=== PATIENT | female | born 1980 | race Two or more races ===

== ENCOUNTER 2018-12-21 23:45 | Emergency (ER) | payer BC ==
[~2018-12-21] VITALS: Ht 165.1 cm; Wt 74.2 kg
[~2018-12-21 23:45] MED LIST: CEPH-443 PO; IBUP800T48 PO
[2018-12-21 23:53] VITALS: Ht 165.1 cm; Wt 74.2 kg
[2018-12-22] MEDS ORDERED: LORAZEPAM 2 MG INJ IV ONE (01:00)
[2018-12-22] MEDS ORDERED: LORA-441 PO (01:35)
[2018-12-22 01:59] VITALS: BP 125/80; PULSE 99; RESP 18
--- NOTE | 2019-01-08 17:59 | ERD ---
ER Documentation Chief Complaint Chief Complaint pt reports she is having stress at work and all of a sudden hyperventilatio HPI Is a very pleasant 38 female complains of panic attack. She has been under a lot of stress at work lately. Denies any fevers chills nausea vomiting. Denies any other current complaints. ROS All systems reviewed and are negative except as per history of present illness. Medications Home Meds Active Scripts Lorazepam* (Ativan*) 0.5 Mg Tablet, 0.5 MG PO Q8H PRN for ANXIETY, #14 TAB Prov:MOLLY URBAN 12/22/18 Allergies Allergies: Coded Allergies: No Known Allergy (Unverified , 12/22/18) PMhx/Soc Medical and Surgical Hx: pt denies Medical Hx, pt denies Surgical Hx History of Surgery: No Anesthesia Reaction: No Hx Neurological Disorder: No Hx Respiratory Disorders: No Hx Cardiac Disorders: No Hx Psychiatric Problems: No Hx Miscellaneous Medical Probl: No Hx Alcohol Use: No Hx Substance Use: No Hx Tobacco Use: No Smoking Status: Never smoker Physical Exam Physical Exam Const: No acute distress Head: Atraumatic Eyes: Normal Conjunctiva ENT: Normal External Ears, Nose and Mouth. Neck: Full range of motion. No meningismus. Resp: Clear to auscultation bilaterally Cardio: Regular rate and rhythm, no murmurs Abd: Soft, non tender, non distended. Normal bowel sounds Skin: No petechiae or rashes Back: No midline or flank tenderness Ext: No cyanosis, or edema Neur: Awake and alert Psych: Normal Mood and Affect Results 24 hrs Current Medications Medications Dose Sig/Doris Start Time Status Last (Trade) Ordered Route PRN Stop Time Admin Dose Reason Admin Lorazepam 2 mg ONCE ONCE 12/22/18 DC 12/22/18 (Ativan) IV 01:00 00:50 12/22/18 01:01 Procedures/MDM EKG: Rate/Rhythm: [Normal Sinus Rhythm] QRS, ST, T-waves: [No changes consistent w/ acute ischemia] Impression: [No evidence of ischemia or arrhythmia] Medical decision making: Very pleasant patient comes in essentially with a panic attack. Treated with Ativan with good response. Patient be discharged home. Follow-up with PCP. Return for worsening symptoms. Departure Diagnosis: Primary Impression: Hyperventilation Condition: Stable Patient Instructions: Anxiety Reaction MOLLY URBAN January 08, 2019 17:59
== END 2018-12-22 02:00 | disposition home or self-care (01) ==
LOC: E/R 23:45
DX: R06.4 Hyperventilation (principal)
CPT/HCPCS: 93005; J2060; 36415; 96374